=== PATIENT | male | born 1975 | race Two or more races ===

== ENCOUNTER 2021-01-26 08:27 | Outpatient (REF) | payer MEDICAID, SELFPAY ==
[2021-01-26 09:05] LABS: MANUAL DIFF FLAG NO
[2021-01-26 09:12] LABS: Basophils Percent Auto 0.4 % (0-2); Eosinophils Absolute Auto 0.2 X10*3/uL (0.0-0.4); Eosinophils Percent Auto 1.9 % (0-4); Hematocrit 46.2 % (42-52); Hemoglobin 15.7 g/dl (14.0-18.0); Imm Gran Abs Auto 0.08 X10*3/uL (0.00-0.03); Imm Gran Pct Auto 0.7 % (0.0-0.4); Lymphocytes Absolute Auto 1.7 X10*3/uL (1.2-4.9); Lymphocytes Percent Auto 15.6 % (20-40); Mean Corpuscular Hemoglobin 30.8 pg (27.0-33.0); Mean Corpuscular Volume 90.6 fL (80-98); Mean Platelet Volume 8.5 fL (9.4-12.4); Monocytes Absolute Auto 0.9 X10*3/uL (0.1-1.2); Monocytes Percent Auto 8.3 % (2-11); Neutrophils Absolute Auto 7.9 X10*3/uL (2.0-8.3); Neutrophils Percent Auto 73.1 % (45-73); Platelet Count 402 X10*3/uL (160-400); White Blood Count 10.8 X10*3/uL (4.8-10.8)
[2021-01-26 09:59] LABS: Alanine Aminotransferase 22 U/L (0-40); Albumin Level 4.2 g/dL (3.5-5.0); Alkaline Phosphatase 106 U/L (39-117); Anion Gap 11 (12-20); Aspartate Amino Transferase 14 U/L (5-37); Bilirubin Total 0.9 mg/dL (0.0-1.0); Calcium 9.2 mg/dL (8.4-10.2); Carbon Dioxide 28 mmol/L (22-29); Chloride 103 mmol/L (96-108); Cholesterol 159 mg/dL; Estimated Glomerular Filt Rate > 60; Glucose Random 99 mg/dL (60-115); HDL Cholesterol 37 mg/dL; LDL Cholesterol Calculated 105 mg/dl; Potassium 4.3 mmol/L (3.3-5.1); Sodium 138 mmol/L (135-145); Total Protein 7.1 g/dL (6.5-8.0); Triglycerides 87 mg/dL
[2021-01-26 10:05] LABS: Thyroid Stimulating Hormone 0.52 uIU/mL (0.32-4.0)
[2021-01-26 10:25] LABS: Blood Urea Nitrogen 12 mg/dL (9-16)
[2021-01-27 08:58] LABS: ~HepC Num1 9.81 S/CO (0.00-0.79); ~Hepatitis C Antibody Reactive (Nonreactive)
[2021-01-29 13:22] LABS: HCV Log PCR <1.18 NOT DETECTED Log IU/mL (NOT DETECTED); HepC Viral Load <15 NOT DETECTED IU/mL (NOT DETECTED)
== END 2021-01-26 08:28 | disposition home or self-care (01) ==
LOC: HO.LAB 08:27
PROVIDERS: PCP Internal Medicine; Visit Provider Internal Medicine
DX: Z00.00 Encounter for general adult medical examination without abnormal findings (principal); B18.2 Chronic viral hepatitis C; E78.00 Pure hypercholesterolemia, unspecified; I87.2 Venous insufficiency (chronic) (peripheral); Z72.0 Tobacco use
CPT/HCPCS: 36415; 80053; 80061; 84443; 85025; 86803; 87522

== ENCOUNTER → 2021-03-02 09:58 | Outpatient (BNVA) | payer MEDICAID, SELFPAY | PROVIDERS: PCP Internal Medicine; Referring Provider Internal Medicine; Visit Provider Surgery Vascular Surgery | DX: I83.11 Varicose veins of right lower extremity with inflammation (principal); G57.90 Unspecified mononeuropathy of unspecified lower limb | CPT/HCPCS: 99202 ==

== ENCOUNTER 2021-03-20 10:27 | Outpatient (REF) | payer MEDICAID, SELFPAY ==
--- NOTE | ~2021-03-20 | US_ITS ---
EXAMINATION: US VENOUS BILATERAL LOWER EXTREMITIES (REFLUX EXAM) CLINICAL INDICATION: Leg pain and varicose veins. COMPARISON: None TECHNIQUE: Color flow triplex imaging and compression Doppler was performed to evaluate both the deep and the superficial systems bilaterally. To evaluate the superficial system, the examination was performed in the upright position. Color-flow Doppler ultrasound and compression ultrasound were utilized. In addition, maneuvers were utilized to demonstrate reflux. FINDINGS: 1. DEEP VENOUS ULTRASOUND OF THE RIGHT LOWER EXTREMITY: Respiratory variation, normal compression and augmented flow are noted in the right common femoral vein as well as the right popliteal vein and there is no evidence of deep venous thrombosis at these locations. There is no evidence of reflux in the deep system in either the common femoral vein or the popliteal vein. There is no evidence of a Pineda's cyst. There is an enlarged right groin lymph node measuring 4.8 x 1.3 x 2.3 cm. 2. SUPERFICIAL ULTRASOUND WITH DOPPLER OF RIGHT LOWER EXTREMITY: The right great saphenous vein at the saphenofemoral junction measures 10 mm, at the proximal thigh 7 mm, at the mid thigh 5 mm, above the knee 5 mm, at the knee 7 mm, [id number] 5 mm, midcalf 3 mm and at the ankle measures 3 mm. Reflux is present in the great saphenous vein from the level of the knee down to the level of the ankle with reflux times of 2.2 seconds. Duplicated Right Great Saphenous Vein: There is a lateral 4 mm saphenous vein that does not reflux. The right small saphenous vein measures 3 mm and demonstrates reflux in its midportion of 1.6 seconds. Accessory Vein of Giacomini: None Incompetent Perforators: None Varices Present: 0.3 cm sized varices are noted at the knee and in the proximal calf without reflux. 3. DEEP VENOUS ULTRASOUND OF THE LEFT LOWER EXTREMITY: Respiratory variation, normal compression and augmented flow are noted in the left common femoral vein as well as the left popliteal vein and there is no evidence of deep venous thrombosis at these locations. There is no evidence of reflux in the deep system in either the common femoral vein or the popliteal vein. There is no evidence of a Pineda's cyst. 4. SUPERFICIAL ULTRASOUND WITH DOPPLER OF LEFT LOWER EXTREMITY: Left great saphenous vein at the saphenofemoral junction measures 8 mm, at the proximal thigh 4 mm, at the mid thigh 4 mm, above the knee 4 mm, at the knee 3 mm, [id number] 3 mm, midcalf 3 mm and at the ankle measures 3 mm. Reflux is noted throughout the left great saphenous vein from just below the junction down to the ankle with reflux times of greater than 3 seconds. Duplicated Left Great Saphenous Vein: There is a 3 mm medial great saphenous vein. The left small saphenous vein measures 7 mm and shows no reflux. Accessory Vein of Giacomini: None Incompetent Perforators: None. Varices Present: Varices are noted in the distal thigh up to 0.4 cm in size which demonstrate 2.6 seconds of reflux. US/US venous duplex LE BI IMPRESSION: 1. No evidence of reflux or thrombus in the common femoral veins or popliteal veins bilaterally. 2. Reflux is present in both great saphenous veins as described above.
== END 2021-03-20 10:28 | disposition home or self-care (01) ==
LOC: HO.US 10:27
PROVIDERS: PCP Internal Medicine; Visit Provider Surgery Vascular Surgery
DX: I83.11 Varicose veins of right lower extremity with inflammation (principal)
CPT/HCPCS: 93970

== ENCOUNTER → 2021-04-06 10:51 | Outpatient (BNVA) | payer MEDICAID, SELFPAY | PROVIDERS: PCP Internal Medicine; Visit Provider Surgery Vascular Surgery | DX: I83.12 Varicose veins of left lower extremity with inflammation (principal) | CPT/HCPCS: 99212 ==

== ENCOUNTER → 2021-05-05 07:29 | Outpatient (BNVA) | payer MEDICAID, SELFPAY | PROVIDERS: PCP Internal Medicine; Visit Provider Surgery Vascular Surgery | DX: I83.12 Varicose veins of left lower extremity with inflammation (principal) | CPT/HCPCS: 36482 ==

== ENCOUNTER 2021-05-08 16:00 | Outpatient (REF) | payer MEDICAID, SELFPAY ==
--- NOTE | ~2021-05-08 | US_ITS ---
EXAMINATION: US VENOUS ULTRASOUND WITH DOPPLER LOWER EXTREMITY, LEFT CLINICAL INFORMATION: This a 45-year-old male who status post vein closure. COMPARISON: None TECHNIQUE: Ultrasound of the deep veins is performed from the hip to the calf with compression sonography and color and pulse Doppler assessment. Spectral analysis with color-flow imaging is performed. FINDINGS: There is normal venous compression and respiratory variation and augmented flow. The visualized common femoral vein, superficial femoral vein, profunda femoral vein, popliteal vein, and the trifurcation region shows no evidence of deep venous thrombosis. There is no significant popliteal fossa cyst. The great saphenous vein appears closed. The vein is closed 2.6 cm from the saphenofemoral junction. There is no extension of thrombus into the deep venous system. If the patient's symptoms persist, followup ultrasound in 5 days 7 days might be of value to exclude proximal propagation from a non-visualized calf vein. US/US venous duplex LE IMPRESSION: 1. No DVT demonstrated in the left lower extremity. 2. The left great saphenous vein is closed 2.6 cm from the junction.
== END 2021-05-08 16:01 | disposition home or self-care (01) ==
LOC: HO.US 16:00
PROVIDERS: PCP Internal Medicine; Visit Provider Surgery Vascular Surgery
DX: M79.605 Pain in left leg (principal)
CPT/HCPCS: 93971

== ENCOUNTER → 2021-05-25 12:48 | Outpatient (BNVA) | payer MEDICAID, SELFPAY | PROVIDERS: PCP Internal Medicine; Visit Provider Surgery Vascular Surgery | DX: I83.11 Varicose veins of right lower extremity with inflammation (principal) | CPT/HCPCS: 99212 ==

== ENCOUNTER 2021-06-20 14:56 | Outpatient (REF) | payer MEDICAID, SELFPAY ==
[2021-06-20 16:14] LABS: Alanine Aminotransferase 20 U/L (0-40); Albumin Level 4.4 g/dL (3.5-5.0); Alkaline Phosphatase 103 U/L (39-117); Anion Gap 15 (12-20); Aspartate Amino Transferase 18 U/L (5-37); Bilirubin Total 0.5 mg/dL (0.0-1.0); Blood Urea Nitrogen 23 mg/dL (9-16); Calcium 9.6 mg/dL (8.4-10.2); Carbon Dioxide 25 mmol/L (22-29); Chloride 105 mmol/L (96-108); Estimated Glomerular Filt Rate > 60; Glucose Random 91 mg/dL (60-115); Potassium 4.3 mmol/L (3.3-5.1); Sodium 141 mmol/L (135-145); Total Protein 7.5 g/dL (6.5-8.0)
[2021-06-20 16:30] LABS: Erythrocyte Sedimentation Rate 23 MM/HR (0-15)
[2021-06-20 16:54] LABS: Vitamin B12 414 pg/mL (200-900)
[2021-06-21 21:13] LABS: Lyme Abs Screen <0.90 index
[2021-06-25 06:45] LABS: IgA 334 mg/dL (47-310); IgG 1196 mg/dL (600-1640); IgM 124 mg/dL (50-300)
== END 2021-06-20 14:57 | disposition home or self-care (01) ==
LOC: HO.LAB 14:56
PROVIDERS: PCP Internal Medicine; Visit Provider Psychiatry & Neurology Neurology
DX: G62.9 Polyneuropathy, unspecified (principal)
CPT/HCPCS: 36415; 80053; 82607; 82746; 82784; 85652; 86334; 86617; 86618

== ENCOUNTER → 2021-06-26 09:19 | Outpatient (BNVA) | payer MEDICAID, SELFPAY | PROVIDERS: PCP Internal Medicine; Visit Provider Surgery Vascular Surgery | DX: I83.11 Varicose veins of right lower extremity with inflammation (principal) | CPT/HCPCS: 36482 ==

== ENCOUNTER 2021-06-27 16:53 | Outpatient (REF) | payer MEDICAID, SELFPAY ==
[2021-07-01 03:22] LABS: Arsenic, 24H Urine <10 mcg/L (<=80); Cadmium, 24H Urine <0.5 mcg/L (<=5.0); Lead, 24H Urine <10 mcg/L (<80); Mercury, 24H Urine <4 mcg/L (<=20)
== END 2021-06-27 16:54 | disposition home or self-care (01) ==
LOC: HO.LNP 16:53
PROVIDERS: Visit Provider Psychiatry & Neurology Neurology
DX: G62.9 Polyneuropathy, unspecified (principal)
CPT/HCPCS: 82175; 82300; 83655; 83825

== ENCOUNTER 2021-06-28 14:59 | Outpatient (REF) | payer MEDICAID, SELFPAY ==
--- NOTE | ~2021-06-28 | US_ITS ---
EXAMINATION: US VENOUS ULTRASOUND WITH DOPPLER LOWER EXTREMITY, RIGHT CLINICAL INFORMATION: Pain post greater saphenous vein VenaSeal procedure 05/29/2021 COMPARISON: Previous exams most recent 05/08/2021 TECHNIQUE: Ultrasound of the deep veins is performed from the hip to the calf with compression sonography and color and pulse Doppler assessment. Spectral analysis with color-flow imaging is performed. FINDINGS: There is normal venous compression and respiratory variation and augmented flow. The visualized common femoral vein, superficial femoral vein, profunda femoral vein, popliteal vein, and the trifurcation region shows no evidence of deep venous thrombosis. There is echogenic material seen in the right greater saphenous vein. This is 4.2 cm from the saphenofemoral junction. The right greater saphenous vein is closed. There is a right groin lymph node that measures 4.4 x 1 x 3 cm. This demonstrates normal ultrasound morphology and flow. There is no popliteal fossa cyst. US/US venous duplex LE RT IMPRESSION: No DVT demonstrated in the right lower extremity.
== END 2021-06-28 15:00 | disposition home or self-care (01) ==
LOC: HO.US 14:59
PROVIDERS: PCP Internal Medicine; Visit Provider Surgery Vascular Surgery
DX: M79.604 Pain in right leg (principal)
CPT/HCPCS: 93971

== ENCOUNTER → 2021-07-13 11:17 | Outpatient (BNVA) | payer MEDICAID, SELFPAY | PROVIDERS: PCP Internal Medicine; Visit Provider Surgery Vascular Surgery | DX: I83.11 Varicose veins of right lower extremity with inflammation (principal) | CPT/HCPCS: 99212 ==

== ENCOUNTER 2022-01-17 07:47 | Outpatient (REF) | payer MEDICAID, SELFPAY ==
[2022-01-17 08:00] LABS: MANUAL DIFF FLAG NO
[2022-01-17 08:16] LABS: Basophils Percent Auto 0.5 % (0-2); Eosinophils Absolute Auto 0.1 X10*3/uL (0.0-0.4); Eosinophils Percent Auto 1.3 % (0-4); Hematocrit 42.1 % (42.0-52.0); Hemoglobin 14.2 g/dl (14.0-18.0); Imm Gran Abs Auto 0.02 X10*3/uL (0.00-0.03); Imm Gran Pct Auto 0.3 % (0.0-0.4); Lymphocytes Absolute Auto 1.8 X10*3/uL (1.2-4.9); Lymphocytes Percent Auto 22.8 % (20-40); Mean Corpuscular HGB Conc 33.7 g/dl (31.0-36.0); Mean Corpuscular Hemoglobin 29.8 pg (27.0-33.0); Mean Corpuscular Volume 88.3 fL (80.0-98.0); Mean Platelet Volume 9.3 fL (9.4-12.4); Monocytes Absolute Auto 0.7 X10*3/uL (0.1-1.2); Monocytes Percent Auto 9.2 % (2-11); Neutrophils Absolute Auto 5.1 x10*3/uL (2.0-8.3); Neutrophils Percent Auto 65.9 % (45-73); Platelet Count 330 X10*3/uL (160-400); Red Blood Count 4.77 X10*6/uL (4.60-5.80); Red Cell Distribution Width 13.3 % (11.0-16.0); White Blood Count 7.8 X10*3/uL (4.8-10.8)
[2022-01-17 08:27] LABS: Alanine Aminotransferase 18 U/L (0-40); Albumin Level 4.1 g/dL (3.5-5.0); Alkaline Phosphatase 108 U/L (39-117); Anion Gap 13 (12-20); Aspartate Amino Transferase 16 U/L (5-37); Bilirubin Total 0.3 mg/dL (0.0-1.0); Blood Urea Nitrogen 18 mg/dL (9-16); Calcium 8.7 mg/dL (8.4-10.2); Carbon Dioxide 28 mmol/L (22-29); Chloride 105 mmol/L (96-108); Cholesterol 177 mg/dL; Estimated Glomerular Filt Rate > 60; Glucose Random 98 mg/dL (60-115); HDL Cholesterol 56 mg/dL; LDL Cholesterol Calculated 110 mg/dl; Potassium 4.3 mmol/L (3.3-5.1); Sodium 142 mmol/L (135-145); Total Protein 6.9 g/dL (6.5-8.0); Triglycerides 55 mg/dL
[2022-01-17 09:04] LABS: Folate 16.3 ng/mL (> or = 4.0); Vitamin B12 984 pg/mL (200-900)
== END 2022-01-17 07:48 | disposition home or self-care (01) ==
LOC: HO.LAB 07:47
PROVIDERS: PCP Internal Medicine; Visit Provider Internal Medicine
DX: G62.9 Polyneuropathy, unspecified (principal); I87.2 Venous insufficiency (chronic) (peripheral); Z72.0 Tobacco use
CPT/HCPCS: 36415; 80053; 80061; 82607; 82746; 85025

== ENCOUNTER 2022-10-02 16:30 | Outpatient (REF) | payer MEDICAID, SELFPAY ==
[2022-10-02 18:35] LABS: Anion Gap 11 (12-20); Blood Urea Nitrogen 26 mg/dL (9-16); Carbon Dioxide 27 mmol/L (22-29); Chloride 109 mmol/L (96-108); Estimated Glomerular Filt Rate > 60; Glucose Random 78 mg/dL (60-115); Sodium 143 mmol/L (135-145)
[2022-10-02 19:01] LABS: Erythrocyte Sedimentation Rate 11 MM/HR (0-15)
== END 2022-10-02 16:31 | disposition home or self-care (01) ==
LOC: HO.LAB 16:30
PROVIDERS: PCP Internal Medicine; Visit Provider Psychiatry & Neurology Neurology
DX: G62.9 Polyneuropathy, unspecified (principal)
CPT/HCPCS: 36415; 80048; 85652

== ENCOUNTER 2023-09-24 09:38 | Outpatient (REF) | payer MEDICAID, SELFPAY ==
[2023-09-24 11:28] LABS: Anion Gap 13 (12-20); Blood Urea Nitrogen 21 mg/dL (9-16); Calcium 9.4 mg/dL (8.4-10.2); Carbon Dioxide 27 mmol/L (22-29); Chloride 103 mmol/L (96-108); Estimated Glomerular Filt Rate > 60; Glucose Random 80 mg/dL (60-115); Potassium 3.9 mmol/L (3.3-5.1); Sodium 139 mmol/L (135-145); T4 Thyroxine 6.8 ug/dL (4.5-12.0); Thyroid Stimulating Hormone 0.26 uIU/mL (0.32-4.0)
[2023-09-24 16:51] LABS: Folate 13.6 ng/mL (> or = 4.0); Vitamin B12 1466 pg/mL (200-900)
== END 2023-09-24 09:39 | disposition home or self-care (01) ==
LOC: HO.LAB 09:38
PROVIDERS: PCP Internal Medicine; Visit Provider Psychiatry & Neurology Neurology
DX: G62.9 Polyneuropathy, unspecified (principal)
CPT/HCPCS: 36415; 80048; 82607; 82746; 84436; 84443

== ENCOUNTER 2023-10-09 11:55 | Outpatient (AMB) | payer MEDICAID, SELFPAY ==
[2023-10-09 12:00] VITALS: BP 98/69; PULSE 93; BMI 25.5
--- NOTE | 2023-10-09 12:00 | A.OFFVIS_ITS ---
Vital Signs 10/09/23 12:00 Height 5 ft 9 in Weight 172 lb 6.424 oz BMI 25.5 BP 98/69 Blood Pressure Location Rt brachial Position Sitting Pulse 93 Intake Visit Reasons: Colonoscopy Screening Intake Note: Patient in office today as a new patient for colonoscopy screening. CC: Patient reports acid reflux and heartburn, his PCP prescribed him a PPI. Accompanied by: Self / Same As Patient Allergies aspirin Adverse Reaction (Verified 10/09/23 12:13) Pruritus Medication List - Last Reconciled 10/09/23 by TA Dempsey bisacodyl (Dulcolax (bisacodyl)) 10 mg (2 x 5 mg) PO BEDTIME 2 days gabapentin 600 mg PO TID pantoprazole 40 mg PO DAILY peg 3350-electrolytes 236-22.74-6.74 -5.86 gram (Golytely) 240 mL PO Q10M 1 day sildenafil 100 mg PO DAILY PRN HPI HPI Colonoscopy Screening: Details: 47-year-old male here for a preprocedural meeting to discuss a screening colonoscopy. He is referred by Dr. Hardy PMX High cholesterol Peripheral arterial disease with venous insufficiency Hepatitis C SMOKER Peripheral neuropathy ideopathic * SURGICAL HISTORY pt denies * ALLERGIES Aspirin - rash * [place] LABS: Laboratory Tests 01/26/21 09/24/23 08:45 09:58 Estimated GFR > 60 Hepatitis C Ab (EIA) Reactive H Hep C Viral Load <15 NOT DETECTED Hep C Viral Load Log <1.18 NOT DETECTED none TODAY'S VISIT [place]# family member translates per pt request This is his first colonoscopy. He denies bowel problems but does take TUMS daily for HB and dyspepsia but his PCP just rxed pantroprazole. He denies any cardiac or respiratory problems. He has Hep C but negative viral load with natural immunity. He is naive to anesthesia and sedation. There is no known FHX of CRC or polyps. [facility] Medical History Venous (peripheral) insufficiency High cholesterol Hepatitis C Surgical History No pertinent past surgical history Social History Patient Tobacco Use Status: Former Tobacco user Cigarettes Per Day: 10 Review of Systems Const Denies fatigue, Denies fever(s), Denies night sweats, Denies poor appetite and Denies weight loss ENT Reports Normal hearing present, Denies dental pain, Denies dysphagia, Denies hearing loss, Denies mouth pain, Denies odynophagia, Denies throat swelling, Denies tongue swelling and Reports other (Dentition adequate) Card Reports no additional complaints Resp Reports no additional complaints GI Details: Denies abdominal pain, Denies melena, Denies bloating, Denies hematochezia, Denies constipation, Denies GI cramping, Denies dysphagia, Denies excessive flatus, Denies early satiety, Reports heartburn, Denies diarrhea, Denies nausea, Denies odynophagia, Denies vomiting and Denies hematemesis Skin/Breast Denies pruritus, Denies lesions, Denies rash and Denies jaundice Neuro Reports Normal hearing present and Denies Abnormal speech present Endo Denies fatigue Aller/Immun Denies throat swelling and Denies tongue swelling Physical Exam Vital Signs: Last Vital Signs Pulse 93 10/09/23 12:00 BP 98/69 10/09/23 12:00 BMI result Body Mass Index 25.5 Const General: cooperative, no acute distress, well developed and well groomed Nutritional Appearance: average body habitus and well nourished Orientation/consciousness: oriented to person, oriented to place and oriented to time Limitations: No language barrier HEENT Head: Yes normocephalic and Yes atraumatic Eyes General: appearance normal, both eyes and all related structures Pupils: Equal, round and reactive pupils present Neck Neck: Yes normal visual inspection and Yes no lymphadenopathy Thyroid: Thyroid normal Resp Effort & Inspection: normal respiratory effort and able to speak in complete sentences Auscultation: clear to auscultation bilaterally Cardio Rate: regular rate Rhythm: regular rhythm Heart sounds: Normal, physiologic split S2 sound present Peripheral pulses: radial pulses present and posterior tibial pulses present GI Inspection: No distended and No Abdominal panniculus present Palpation (GI): Soft to palpation, nontender, no guarding, not rigid and No hepatosplenomegaly present Percussion: Yes normal to percussion Auscultation: normal bowel sounds Rectal Exam - Male: Yes deferred Skin General skin exam: no rashes or lesions noted, turgor normal, skin not dry, no jaundice, No spider nevi and no striae Rashes: no rashes Nails: normal Neuro General: oriented to person, oriented to place and oriented to time Cranial nerves: Yes Equal, round and reactive pupils present and Yes Normal hearing present Speech: No Abnormal speech present Extrem General: Yes normal to inspection, No clubbing, No cyanosis and No edema Psych Appearance: grossly normal and well kempt Mental Status: mental status grossly normal Speech and movement: Normal speech and movement present Affect: normal affect Attitude: cooperative Thought process: Normal thought process present and not confabulating Thought content: Normal thought content present Insight: Good insight present (Psych) Judgement: Good judgement present (Psych) Assessment & Plan Assessment & Plan (1) Pre-op examination: Code(s): Z01.818 - Encounter for other preprocedural examination Category: Medical Plan [place]# family member translates per pt request This is his first colonoscopy. He denies bowel problems but does take TUMS daily for HB and dyspepsia but his PCP just rxed pantroprazole. He denies any cardiac or respiratory problems. He has Hep C but negative viral load with natural immunity. He is naive to anesthesia and sedation. There is no known FHX of CRC or polyps. Orders: Orders Comprehensive Met. Panel 10/09/23 Z01.818 - Encounter for other preprocedural examination Colonoscopy - GI Use Only 10/09/23 Z01.818 - Encounter for other preprocedural examination Complete Blood Count Auto Diff 10/09/23 Z01.818 - Encounter for other preprocedural examination Medications: New bisacodyl (Dulcolax (bisacodyl)) 10 mg (2 x 5 mg) PO BEDTIME 4 tabs 0RF 2 days peg 3350-electrolytes 236-22.74-6.74 -5.86 gram (Golytely) until fecal effluent is clear; do not exceed a total volume of 2,000 mL 240 mL PO Q10M 4,000 mL 0RF 1 day Z12.11 - Encounter for screening for malignant neoplasm of colon Coding Level of Care Code New Pt Level 3 (25784) Diagnoses Pre-op examination Z01.818
== END 2023-10-09 13:28 | disposition home or self-care (01) ==
PROVIDERS: PCP Internal Medicine; Visit Provider Nurse Practitioner
DX: Z01.818 Encounter for other preprocedural examination (principal)
CPT/HCPCS: 99203

== ENCOUNTER 2023-10-09 11:55 | Outpatient (REF) | payer MEDICAID, SELFPAY ==
[2023-10-09 13:49] LABS: MANUAL DIFF FLAG NO
[2023-10-09 14:00] LABS: Basophils Absolute Auto 0.1 X10*3/uL (0.0-0.2); Basophils Percent Auto 0.6 % (0-2); Eosinophils Absolute Auto 0.2 X10*3/uL (0.0-0.4); Hematocrit 42.6 % (42.0-52.0); Hemoglobin 14.3 g/dl (14.0-18.0); Imm Gran Abs Auto 0.04 X10*3/uL (0.00-0.03); Imm Gran Pct Auto 0.4 % (0.0-0.4); Lymphocytes Absolute Auto 2.6 X10*3/uL (1.2-4.9); Lymphocytes Percent Auto 24.7 % (20-40); Mean Corpuscular HGB Conc 33.6 g/dl (31.0-36.0); Mean Corpuscular Hemoglobin 29.4 pg (27.0-33.0); Mean Corpuscular Volume 87.7 fL (80.0-98.0); Mean Platelet Volume 8.4 fL (9.4-12.4); Monocytes Absolute Auto 0.9 X10*3/uL (0.1-1.2); Monocytes Percent Auto 8.9 % (2-11); Neutrophils Absolute Auto 6.6 x10*3/uL (2.0-8.3); Neutrophils Percent Auto 63.4 % (45-73); Platelet Count 396 X10*3/uL (160-400); Red Blood Count 4.86 X10*6/uL (4.60-5.80); Red Cell Distribution Width 12.8 % (11.0-16.0); White Blood Count 10.3 X10*3/uL (4.8-10.8)
[2023-10-09 14:21] LABS: Alanine Aminotransferase 13 U/L (0-40); Albumin Level 4.3 g/dL (3.5-5.0); Alkaline Phosphatase 97 U/L (39-117); Anion Gap 13 (12-20); Aspartate Amino Transferase 15 U/L (5-37); Bilirubin Total 0.5 mg/dL (0.0-1.0); Blood Urea Nitrogen 20 mg/dL (9-16); Calcium 9.2 mg/dL (8.4-10.2); Carbon Dioxide 27 mmol/L (22-29); Chloride 104 mmol/L (96-108); Estimated Glomerular Filt Rate > 60; Glucose Random 77 mg/dL (60-115); Potassium 3.9 mmol/L (3.3-5.1); Sodium 140 mmol/L (135-145); Total Protein 7.3 g/dL (6.5-8.0)
== END 2023-10-09 11:56 | disposition home or self-care (01) ==
LOC: HO.LAB 11:55
PROVIDERS: PCP Internal Medicine; Visit Provider Nurse Practitioner
DX: Z01.818 Encounter for other preprocedural examination (principal); K21.9 Gastro-esophageal reflux disease without esophagitis; R12 Heartburn
CPT/HCPCS: 36415; 80053; 85025; 99212

== ENCOUNTER 2023-11-01 18:36 | Outpatient (REF) | payer MEDICAID, SELFPAY ==
--- NOTE | ~2023-11-01 | MR_ITS ---
EXAMINATION: MR BRAIN WITHOUT CONTRAST CLINICAL INFORMATION: Headache COMPARISON: None TECHNIQUE: Multiplanar multisequence MR imaging of the brain was obtained without intravenous contrast. FINDINGS: Motion degraded examination There is no acute infarct on diffusion-weighted imaging. There is no intracranial hemorrhage on iron-sensitive imaging. No extra-axial collection or mass effect/herniation. There are several scattered punctate foci of T2/FLAIR hyperintense signal in the supratentorial and predominantly frontal white matter. Otherwise normal parenchymal signal characteristics. No hydrocephalus. The ventricles are normal in morphology and size. The major flow voids at the skull base are preserved. The midline structures are normal. The cerebellar tonsils are normally positioned. The craniocervical junction is normal. Marrow signal is within normal limits. The visualized soft tissues are without significant abnormality. No signal abnormality within the paranasal sinuses or within the mastoid air cells. MR/MR head/brain wo con IMPRESSION: Motion degraded examination 1. Several scattered punctate foci of T2/FLAIR hyperintense signal in the supratentorial and frontal white matter are nonspecific but can be seen in the setting of migraine headache. No specific lesion morphology or distribution to suggest demyelinating disease. 2. Otherwise unremarkable noncontrast MRI of the brain.
== END 2023-11-01 18:37 | disposition home or self-care (01) ==
LOC: HO.MRI 18:36
PROVIDERS: PCP Internal Medicine; Visit Provider Psychiatry & Neurology Neurology
DX: G31.84 Mild cognitive impairment of uncertain or unknown etiology (principal)
CPT/HCPCS: 70551

== ENCOUNTER 2023-11-18 10:25 | Outpatient (REF) | payer MEDICAID, SELFPAY ==
[2023-11-18 10:56] LABS: MANUAL DIFF FLAG NO
[2023-11-18 12:39] LABS: Basophils Absolute Auto 0.1 X10*3/uL (0.0-0.2); Eosinophils Absolute Auto 0.3 X10*3/uL (0.0-0.4); Eosinophils Percent Auto 3.5 % (0-4); Hematocrit 42.6 % (42.0-52.0); Hemoglobin 14.2 g/dl (14.0-18.0); Imm Gran Abs Auto 0.03 X10*3/uL (0.00-0.03); Imm Gran Pct Auto 0.4 % (0.0-0.4); Lymphocytes Absolute Auto 2.2 X10*3/uL (1.2-4.9); Lymphocytes Percent Auto 28.7 % (20-40); Mean Corpuscular HGB Conc 33.3 g/dl (31.0-36.0); Mean Corpuscular Hemoglobin 29.6 pg (27.0-33.0); Mean Corpuscular Volume 88.9 fL (80.0-98.0); Mean Platelet Volume 9.5 fL (9.4-12.4); Monocytes Absolute Auto 0.7 X10*3/uL (0.1-1.2); Monocytes Percent Auto 9.2 % (2-11); Neutrophils Absolute Auto 4.4 x10*3/uL (2.0-8.3); Neutrophils Percent Auto 57.2 % (45-73); Platelet Count 335 X10*3/uL (160-400); Red Blood Count 4.79 X10*6/uL (4.60-5.80); Red Cell Distribution Width 13.3 % (11.0-16.0); White Blood Count 7.7 X10*3/uL (4.8-10.8)
[2023-11-18 13:37] LABS: Alanine Aminotransferase 17 U/L (0-40); Albumin Level 4.2 g/dL (3.5-5.0); Alkaline Phosphatase 99 U/L (39-117); Anion Gap 14 (12-20); Aspartate Amino Transferase 17 U/L (5-37); Bilirubin Total 0.6 mg/dL (0.0-1.0); Blood Urea Nitrogen 13 mg/dL (9-16); Calcium 9.6 mg/dL (8.4-10.2); Carbon Dioxide 31 mmol/L (22-29); Chloride 101 mmol/L (96-108); Estimated Glomerular Filt Rate > 60; Glucose Random 72 mg/dL (60-115); Potassium 4.1 mmol/L (3.3-5.1); Sodium 142 mmol/L (135-145)
[2023-11-18 13:56] LABS: Thyroid Stimulating Hormone 0.34 uIU/mL (0.32-4.0)
[2023-11-18 14:04] LABS: Folate 10.7 ng/mL (> or = 4.0); Vitamin B12 1994 pg/mL (200-900)
== END 2023-11-18 10:26 | disposition home or self-care (01) ==
LOC: HO.LAB 10:25
PROVIDERS: PCP Internal Medicine; Visit Provider Internal Medicine
DX: Z00.00 Encounter for general adult medical examination without abnormal findings (principal); F17.201 Nicotine dependence, unspecified, in remission; F32.9 Major depressive disorder, single episode, unspecified; G44.209 Tension-type headache, unspecified, not intractable; K21.9 Gastro-esophageal reflux disease without esophagitis; N52.1 Erectile dysfunction due to diseases classified elsewhere; R63.4 Abnormal weight loss
CPT/HCPCS: 36415; 80053; 82607; 82746; 84443; 85025

== ENCOUNTER 2024-03-11 09:19 | Day surgery (SDC) | payer MEDICAID, SELFPAY ==
[2024-03-06 14:35] VITALS: BMI 25.4
--- NOTE | 2024-03-10 09:09 | P.CONAN_ITS ---
Documented by User: Lena Ma NP 03/10/24 09:09 HPI - Anesthesia Eval Consult details Narrative: 48yo M for Colonoscopy [facility] Active Problems Active Problems: All Active Problems Pre-op examination (Acute) Varicose veins of left lower extremity with inflammation (Acute) Neuropathy of lower extremity (Acute) Varicose veins of right lower extremity with inflammation (Acute) Past Medical History Medical History Venous (peripheral) insufficiency High cholesterol Hepatitis C Surgical History Surgical History No pertinent past surgical history Social History Social History Patient Tobacco Use Status: Former Tobacco user Cigarettes Per Day: 10 Substance Use Frequency: Occasionally Have you been hit, kicked, punched, or otherwise hurt by someone within the past year? If so, by whom?: No Are you DNR?: No Advance Directives: No Advance Directives Information Provided: Yes Recently lost weight without trying: No Nutrition Risks: No Nutritional Risk Meds Allergies Allergy/AdvReac Type Severity Reaction Status Date / Time aspirin AdvReac Pruritus Verified 10/09/23 12:13 Home Medications ?Medication ?Instructions ?Recorded ?Confirmed ?Last Taken ?Type sildenafil 100 mg tablet 100 mg PO DAILY PRN 03/02/21 10/09/23 Unknown History gabapentin 600 mg tablet 600 mg PO TID 06/26/21 10/09/23 Unknown History pantoprazole 40 mg tablet,delayed 40 mg PO DAILY 10/09/23 10/09/23 Unknown History release Exam Height,Weight and Vital Signs: Height 5 ft 9 in Weight 78.018 kg Assessment and Plan Assessment Anesthesia Assessment: Chart Reviewed Documented by User: Charlotte Kong MD 03/11/24 10:39 PMF Past Medical History Medical History Venous (peripheral) insufficiency High cholesterol Hepatitis C Family History Family history of problems with anesthesia: No Surgical History Surgical History No pertinent past surgical history History of Problems with Anesthesia: No Social History Social History Patient Tobacco Use Status: Former Tobacco user Cigarettes Per Day: 10 Substance Use Frequency: Occasionally Have you been hit, kicked, punched, or otherwise hurt by someone within the past year? If so, by whom?: No Are you DNR?: No Advance Directives: No Advance Directives Information Provided: Yes Recently lost weight without trying: No Nutrition Risks: No Nutritional Risk Meds Allergies Allergy/AdvReac Type Severity Reaction Status Date / Time aspirin AdvReac Pruritus Verified 10/09/23 12:13 Home Medications ?Medication ?Instructions ?Recorded ?Confirmed ?Last Taken ?Type sildenafil 100 mg tablet 100 mg PO DAILY PRN 03/02/21 10/09/23 Unknown History gabapentin 600 mg tablet 600 mg PO TID 06/26/21 10/09/23 Unknown History pantoprazole 40 mg tablet,delayed 40 mg PO DAILY 10/09/23 10/09/23 Unknown History release Exam Airway Mallampati Class: II TM Dist: >3cm Neck ROM: Full Heart: RRR Lungs: CTA Assessment and Plan Assessment Anesthesia Assessment: Anesthesia Plan Discussed Final Anesthetic Review Family History of Problems with Anesthesia: No History of Problems with Anesthesia: No NPO: Yes ASA Class: II Final Preanesthetic Review: No Changes in Pt Med Stat, Meds/Allgs Chart Reviewed, Consent Obtained/Reviewed and Anes Risks/Benef Reviewed Patient Risk: Low Procedure Risk: Low Anesthetic Plan Anesthetic Plan: MAC: Disposition: Standard PACU
[2024-03-11 10:29] VITALS: BP 107/73; PULSE 62; RESP 18; TEMP 37.2; O2SAT 98
--- NOTE | 2024-03-11 11:24 | MHC.SHP ---
Pre-Procedural Eval Section A - 24 Hr Update-Section A only Date of Service: 03/11/24 Section B - Complete if H&P > 30 days Chief Complaint: screening Relevant Family History (Specify if Yes): No Relevant Social History: Tobacco Use Present Medications: see Short Stay Collaborative assessment Medical History: Significant History (varicose veins) History of Previous Operations: No relevant previous surgery Allergies: Allergies Allergy/AdvReac Type Severity Reaction Status Date / Time aspirin AdvReac Pruritus Verified 10/09/23 12:13 Review of Systems Sugical H&P ROS: Negative: Constitution, Cardiovascular, Respiratory, Neurological, Psychiatric, Hem-Onc, Allergic/Immunologic, Gastrointestinal, Genitourinary, Musculoskeletal, Integumentary, Endocrine and Eyes/Ears/Nose/Throat Exam Surgical H&P Exam: Normal: HEENT, Normal: Heart, Normal: Lungs, Normal: Extremities, Normal: Abdomen, Normal: Skin and Normal: Neurological Plan Diagnosis/Plan: Unchanged I have reviewed the history and physical and performed a pertinent physical examination on my patient. No changes have occurred unless specified. Time Spent With Patient Time: Total time managing care of this patient today ____ minutes.
--- NOTE | 2024-03-11 11:54 | HO.OPN-COLON ---
Colonoscopy Operative Note Operative Note Date of Service: 03/11/24 Narrative: Operative Information Procedure Description: Colonoscopy Indication: screening Anesthesia: MAC COLONOSCOPY Instrument: Olympus variable stiffness pediatric scope 190L Colonoscopy Monitoring: Vital signs and clinical assessment, continuous EKG monitoring, Pulse oximetry, Carbon Dioxide monitoring and blood pressure monitoring were done throughout the procedure. Colon withdrawal time was 9 minutes. Procedure: The patient was placed in the left lateral decubitis position and pre-procedure medications were administered. After a digital rectal examination of the ano-rectum, the video colonoscope was inserted into the rectum and advanced through the colon to the cecum/TI. The colonoscope was slowly withdrawn in a retrograde panoramic fashion and the colon mucosa was carefully examined including a retroflexed view of the rectum. Findings and interventions are described below. Procedure Difficulty: easy Findings: Terminal Ileum-normal Cecum: 4-6 mm sessile polyp removed with cold forceps Ascending Colon: normal Transverse Colon -normal Descending Colon: x 2 sessile polyps 8-10 mm removed with cold snare Sigmoid Colon: normal Rectum: Retroflexion with small internal hemorrhoids seen, grade I Anorectum - normal Intervention: cold snare Colon preparation: [place] Bowel Preparation Scale Right colon; 2 Transverse colon: 3 Left colon; 3 (0 = Unprepared colon segment with mucosa not seen due to solid stool that cannot be cleared. 1 = Portion of mucosa of the colon segment seen, but other areas of the colon segment not well seen due to staining, residual stool and/or opaque liquid. 2 = Minor amount of residual staining, small fragments of stool and/or opaque liquid, but mucosa of colon segment seen well. 3 = Entire mucosa of colon segment seen well with no residual staining, small fragments of stool or opaque liquid) Impression and Post Procedure Diagnosis: colon polyps internal hemorrhoids Plan: High fiber diet leaflet Avoid straining at stool, epsom salts and sitz bath, anusol supps or cream Repeat Colonoscopy in 3-4 years due to adenomatous appearing polyps or earlier if clinically indicated Above findings were reviewed with the patient and relevant handouts were provided if indicated.
[2024-03-11 11:59] VITALS: BP 95/55; PULSE 67; RESP 16; TEMP 36.1; O2SAT 98
[2024-03-11 12:15] VITALS: BP 93/54; PULSE 75; RESP 16; O2SAT 100
[2024-03-11 12:30] VITALS: BP 105/83; PULSE 61; RESP 16; TEMP 36.2; O2SAT 99
== END 2024-03-11 13:06 | disposition home or self-care (01) ==
PROVIDERS: PCP Internal Medicine; Visit Provider Internal Medicine Gastroenterology
PROC: 0DJD8ZZ Inspection of Lower Intestinal Tract, Via Natural or Artificial Opening Endoscopic (ICD-10-PCS; CPT 45378; principal; 2024-03-11 11:50)
DX: Z12.11 Encounter for screening for malignant neoplasm of colon (principal); D12.0 Benign neoplasm of cecum; D12.4 Benign neoplasm of descending colon; K64.0 First degree hemorrhoids; B19.20 Unspecified viral hepatitis C without hepatic coma; E78.00 Pure hypercholesterolemia, unspecified; I87.2 Venous insufficiency (chronic) (peripheral); Z79.899 Other long term (current) drug therapy; Z88.6 Allergy status to analgesic agent; Z87.891 Personal history of nicotine dependence
CPT/HCPCS: 45385; 45380; 88305; J2003; J2704

== ENCOUNTER → 2024-03-11 09:19 | Outpatient (BNV) | payer MEDICAID, SELFPAY | PROVIDERS: PCP Internal Medicine; Visit Provider Internal Medicine Gastroenterology | DX: Z12.11 Encounter for screening for malignant neoplasm of colon (principal); D12.4 Benign neoplasm of descending colon; D12.0 Benign neoplasm of cecum; K64.0 First degree hemorrhoids | CPT/HCPCS: 45380; 45385 ==

== ENCOUNTER 2024-03-25 10:52 | Outpatient (AMB) | payer MEDICAID, SELFPAY ==
[2024-03-25 10:55] VITALS: BP 96/64; PULSE 63; BMI 24.9
--- NOTE | 2024-03-25 10:55 | A.OFFVIS_ITS ---
Vital Signs 03/25/24 10:55 Height 5 ft 9 in Weight 168 lb 13.985 oz BMI 24.9 BP 96/64 Blood Pressure Location Lt brachial Position Sitting Pulse 63 Intake Visit Reasons: s/p colon Intake Note: Patient in office today s/p colonoscopy. CC: Patient reports doing well and denies having any GI concerns today. Per patient's girlfriend he is taking the Omeprazole because he never received the Pantoprazole. Air Breaker Operator Required: Yes Air Breaker Operator Name: significan other Accompanied by: Significant Other Allergies aspirin Adverse Reaction (Verified 03/25/24 10:59) Pruritus HPI HPI s/p colon: Details: Assessment & Plan (1) Pre-op examination: Code(s): Z01.818 - Encounter for other preprocedural examination Category: Medical Plan [place]# family member translates per pt request This is his first colonoscopy. He denies bowel problems but does take TUMS daily for HB and dyspepsia but his PCP just rxed pantroprazole. He denies any cardiac or respiratory problems. He has Hep C but negative viral load with natural immunity. He is naive to anesthesia and sedation. There is no known FHX of CRC or polyps. Orders: Orders Comprehensive Met. Panel 10/09/23 Z01.818 - Encounter for other preprocedural examination Colonoscopy - GI Use Only 10/09/23 Z01.818 - Encounter for other preprocedural examination Complete Blood Count Auto Diff 10/09/23 Z01.818 - Encounter for other prepro cedural examination Medications: New bisacodyl (Dulcolax (bisacodyl)) 10 mg (2 x 5 mg) PO BEDTIME 4 tabs 0RF 2 days peg 3350-electrolytes 236-22.74-6.74 -5.86 gram (Golytely) until fecal effluent is clear; do not exceed a total volume of 2,000 mL 240 mL PO Q10M 4,000 mL 0RF 1 day Z12.11 - Encounter for screening for malignant neoplasm of colon Labs: Laboratory Tests 11/18/23 10:55 WBC 7.7 Hgb 14.2 Hct 42.6 Plt Count 335 Estimated GFR > 60 Total Bilirubin 0.6 AST 17 ALT 17 Alkaline Phosphatase 99 TSH 0.34 COLONOSCOPY 03/11/24 Findings: Terminal Ileum-normal Cecum: 4-6 mm sessile polyp removed with cold forceps Ascending Colon: normal Transverse Colon -normal Descending Colon: x 2 sessile polyps 8-10 mm removed with cold snare Sigmoid Colon: normal Rectum: Retroflexion with small internal hemorrhoids seen, grade I Anorectum - normal Intervention: cold snare Impression and Post Procedure Diagnosis: colon polyps internal hemorrhoids Plan: High fiber diet leaflet Avoid straining at stool, epsom salts and sitz bath, anusol supps or cream Repeat Colonoscopy in 3-4 years due to adenomatous appearing polyps or earlier if clinically indicated BIOPSY Received: 03/11/24 Diagnosis A. Colon, descending, polyps: Tubular adenomas (2 pieces); negative for high- grade dysplasia and carcinoma. B. Colon, cecal polyp: Tubular adenoma; negative for high-grade dysplasia and carcinoma. TODAY'S VISIT [place] #female family member translates per pt request He is agreeable to a 3 year repeat. The procedure was well tolerated. The results were explained and the patient is agreeable to the follow-up interval as stated. The bowel pattern has returned to normal. Education was provided to tell any 1st degree relatives about their findings to be sure that they are screened by age 45. Educated that they will be put on a recall list when it is time for their repeat scope but should they move out of state or away from the hospital they will need to remember along with their primary to repeat the procedure in a timely fashion to avoid any adverse complications. [facility] Medical History Venous (peripheral) insufficiency High cholesterol Hepatitis C Surgical History No pertinent past surgical history Social History Patient Tobacco Use Status: Former Tobacco user Cigarettes Per Day: 10 Review of Systems Const Denies fatigue, Denies fever(s), Denies night sweats, Denies poor appetite and Denies weight loss ENT Reports Normal hearing present, Denies dental pain, Denies dysphagia, Denies hearing loss, Denies mouth pain, Denies odynophagia, Denies throat swelling, Denies tongue swelling and Reports other (Dentition adequate) Card Reports no additional complaints Resp Reports no additional complaints GI Details: Denies abdominal pain, Denies melena, Denies bloating, Denies hematochezia, Denies constipation, Denies GI cramping, Denies dysphagia, Denies excessive flatus, Denies early satiety, Denies heartburn, Denies diarrhea, Denies nausea, Denies odynophagia, Denies vomiting and Denies hematemesis Skin/Breast Denies pruritus, Denies lesions, Denies rash and Denies jaundice Neuro Reports Normal hearing present and Denies Abnormal speech present Endo Denies fatigue Aller/Immun Denies throat swelling and Denies tongue swelling Physical Exam Vital Signs: Last Vital Signs Pulse 63 03/25/24 10:55 BP 96/64 03/25/24 10:55 BMI result Body Mass Index 24.9 Const General: cooperative, no acute distress, well developed and well groomed Nutritional Appearance: average body habitus and well nourished Orientation/consciousness: oriented to person, oriented to place and oriented to time Limitations: language barrier and other limitations HEENT Head: Yes normocephalic and Yes atraumatic Eyes General: appearance normal, both eyes and all related structures Pupils: Equal, round and reactive pupils present Neck Neck: Yes normal visual inspection and Yes no lymphadenopathy Thyroid: Thyroid normal Resp Effort & Inspection: normal respiratory effort and able to speak in complete sentences Auscultation: clear to auscultation bilaterally Cardio Rate: regular rate Rhythm: regular rhythm Heart sounds: Normal, physiologic split S2 sound present Peripheral pulses: radial pulses present and posterior tibial pulses present GI Inspection: No distended and No Abdominal panniculus present Palpation (GI): Soft to palpation, nontender, no guarding, not rigid and No hepatosplenomegaly present Percussion: Yes normal to percussion Auscultation: normal bowel sounds Rectal Exam - Male: Yes deferred Skin General skin exam: no rashes or lesions noted, turgor normal, skin not dry, no jaundice, No spider nevi and no striae Rashes: no rashes Nails: normal Neuro General: oriented to person, oriented to place and oriented to time Cranial nerves: Yes Equal, round and reactive pupils present and Yes Normal hearing present Speech: No Abnormal speech present Extrem General: Yes normal to inspection, No clubbing, No cyanosis and No edema Psych Appearance: grossly normal and well kempt Mental Status: mental status grossly normal Speech and movement: Normal speech and movement present Affect: normal affect Attitude: cooperative Thought process: Normal thought process present and not confabulating Thought content: Normal thought content present Insight: Limited insight present (Psych) Judgement: Limited judgement present (Psych) Results Reviewed Results Reviewed: Laboratory Tests 11/18/23 10:55 WBC 7.7 Hgb 14.2 Hct 42.6 Plt Count 335 Estimated GFR > 60 Total Bilirubin 0.6 AST 17 ALT 17 Alkaline Phosphatase 99 TSH 0.34 COLONOSCOPY 03/11/24 Findings: Terminal Ileum-normal Cecum: 4-6 mm sessile polyp removed with cold forceps Ascending Colon: normal Transverse Colon -normal Descending Colon: x 2 sessile polyps 8-10 mm removed with cold snare Sigmoid Colon: normal Rectum: Retroflexion with small internal hemorrhoids seen, grade I Anorectum - normal Intervention: cold snare Impression and Post Procedure Diagnosis: colon polyps internal hemorrhoids Plan: High fiber diet leaflet Avoid straining at stool, epsom salts and sitz bath, anusol supps or cream Repeat Colonoscopy in 3-4 years due to adenomatous appearing polyps or earlier if clinically indicated BIOPSY Received: 03/11/24 Diagnosis A. Colon, descending, polyps: Tubular adenomas (2 pieces); negative for high- grade dysplasia and carcinoma. B. Colon, cecal polyp: Tubular adenoma; negative for high-grade dysplasia and carcinoma. Assessment & Plan Assessment & Plan (1) Tubular adenoma of colon: Code(s): D12.6 - Benign neoplasm of colon, unspecified Category: Medical Plan [place] #female family member translates per pt request He is agreeable to a 3 year repeat. The procedure was well tolerated. The results were explained and the patient is agreeable to the follow-up interval as stated. The bowel pattern has returned to normal. Education was provided to tell any 1st degree relatives about their findings to be sure that they are screened by age 45. Educated that they will be put on a recall list when it is time for their repeat scope but should they move out of state or away from the hospital they will need to remember along with their primary to repeat the procedure in a timely fashion to avoid any adverse complications. Coding Level of Care Code Est Pt Level 3 (85612) Diagnoses Tubular adenoma of colon D12.6
== END 2024-03-25 11:27 | disposition home or self-care (01) ==
LOC: HO.HGI 10:52
PROVIDERS: PCP Internal Medicine; Visit Provider Nurse Practitioner
DX: D12.6 Benign neoplasm of colon, unspecified (principal)
CPT/HCPCS: 99213

== ENCOUNTER → 2024-03-25 10:52 | Outpatient (BNVA) | payer MEDICAID, SELFPAY | PROVIDERS: PCP Internal Medicine; Visit Provider Nurse Practitioner | DX: D12.6 Benign neoplasm of colon, unspecified (principal) | CPT/HCPCS: 99212 ==

== ENCOUNTER 2025-01-15 03:57 | Emergency (ER) | payer MEDICAID, SELFPAY ==
[2025-01-15 04:11] VITALS: BP 128/89; PULSE 86; RESP 20; TEMP 36.9; TEMP 37; O2SAT 99; BMI 28.2
[2025-01-15] MEDS: diazePAM 10 MG/2 ML CARTRIDGE 2.5 MG IVPUSH (04:35)
--- NOTE | 2025-01-15 04:43 | PC.NURSE ---
Iv placed in right AC, medicated per mar.
--- NOTE | 2025-01-15 04:55 | ED_ITS ---
HPI - Skin/Abscess/Foreign Bdy General Chief complaint: Skin/Abscess/Foreign Body Stated complaint: rash Time Seen by Provider: 01/15/25 04:09 Source: patient Mode of arrival: ambulatory Limitations: no limitations History of Present Illness ED Provider: Dr. Kelly Davalos HPI narrative: Patient comes to the emergency room complaining of very itchy and burning rash in the posterior aspect of his neck. Patient states that initially he thought that he cut himself shaving and has been applying several different medications. [id number] remedies to his neck. Patient states that it has spread and gotten much worse. Patient denies fever chills. Patient states that he went on vacation, he was prescribed a topical antibiotic without any significant relief. Patient states that he had to come home early from vacation. Patient denies fever chills. Patient denies rash anywhere else. Related Data Home Medications ?Medication ?Instructions ?Recorded ?Confirmed sildenafil 100 mg tablet 100 mg PO DAILY PRN 03/02/21 10/09/23 pantoprazole 40 mg tablet,delayed 40 mg PO DAILY 10/0810/09/23 release doxepin 25 mg capsule 25 mg PO BEDTIME 03/25/24 gabapentin 800 mg tablet 800 mg PO TID 03/25/24 omeprazole 20 mg capsule,delayed 20 mg PO DAILY release sertraline 50 mg tablet 50 mg PO DAILY 03/25/24 Previous Rx's ?Medication ?Instructions ?Recorded cephalexin 250 mg capsule 250 mg PO BID 7 days #14 cap s 01/15/25 doxycycline hyclate 100 mg tablet 100 mg PO BID 7 days #14 tabs 01/15/25 ibuprofen 600 mg tablet 600 mg PO TID PRN fever or p ain 01/15/25 #30 tabs prednisone 50 mg tablet 50 mg PO DAILY #4 tabs 01/15 white petrolatum (Petroleum Jelly 1 appl topical 6XD P RN dry skin 01/15/25 topical) #113 grams Allergies Allergy/AdvReac Type Severity Reaction Status Date / Time aspirin AdvReac Pruritus Verified 01/15/25 04:12 Review of Systems 2 Review of Systems: Constitutional : No Weight loss, No Fever, No Chills, No Night Sweats, No Fatigue, No Malaise ENT/Mouth : No Hearing loss, No Ear Pain, No Nasal Congestion, No Sinus Pain, No Hoarseness, No sore throat, No Rhinorrhea, No Swallowing Difficulty Eyes: No Eye Pain, No Swelling, No Redness, No Foreign Body, No Discharge, No Vision Changes Cardiovascular : No Chest Pain, No SOB, No Dyspnea on Exertion, No Orthopnea, No Edema, No Palpitations Respiratory : No Cough, No Sputum, No Wheezing, No Smoke Exposure, No Dyspnea Gastrointestinal : No Nausea, No Vomiting, No Diarrhea, No Constipation, No abdominal Pain, No Hematochezia, No Melena Genitourinary : no irregular bleeding, No Dysuria, No Urinary Frequency, No Hematuria, No Urinary Incontinence, No Urgency, No Flank Pain, No Urinary Flow Changes, No Hesitancy Musculoskeletal : No joint pain, No Myalgias, No Joint Swelling Skin : Patient complaining of rash in the posterior aspect of the neck, very itchy and burning Neuro : No Weakness, No Numbness, No Paresthesias, No Loss of Consciousness, No Dizziness, No Headache Psych : No Anxiety/Panic, No Depression, No SI/HI/AH/VH, No Social Issues, Heme/Lymph: No Bruising, No Bleeding,No Lymphadenopathy Endocrine : No Polyuria, No Polydipsia, No Temperature Intolerance PMFSH Past Medical History Medical History Venous (peripheral) insufficiency High cholesterol Hepatitis C Surgical History No pertinent past surgical history Social History Social History Patient Tobacco Use Status: Former Tobacco user Cigarettes Per Day: 10 Smoked in Last 30 Days: No Use of substances other than those prescribed or required for medical reasons: No Advance Directives: No Advance Directives Information Provided: Yes Do you have a plan to hurt others: No Plan Physical Exam 2 Exam: Exam: Appearance: Alert. Oriented X3. No acute distress. Eyes: Pupils equal, round and reactive to light. ENT: Pharynx normal. Neck: Normal inspection. Neck supple. No lymph nodes noted. No crepitus CVS: Normal heart rate and rhythm. Pulses normal. Normal S1 and S2 Respiratory: No respiratory distress. Breath sounds normal. No Wheezing. No rales Abdomen: Soft and nontender. No rigidity. No distention. Skin: Skin warm and dry. Around the next, patient has what seems contact dermatitis that got infected secondary to scratching. Extremities: No lower extremity edema. No Lacerations. No Rash Neuro: Oriented X 3. No motor deficit. No sensory deficit. Moving all extremities. No slurred speech. CN 2 through 12 grossly intact Psych: Cooperative, very anxious Vital Signs: Vital Signs: Last Vital Signs Temp 98.6 F 01/15/25 04:11 Pulse 86 01/15/25 04:11 Resp 20 01/15/25 04:11 BP 128/89 01/15/25 04:11 Pulse Ox 99 01/15/25 04:11 O2 Del Method Room Air 01/15/25 04:11 BMI result Body Mass Index 28.2 Course Course Course Narrative: On arrival, patient very anxious, crying, scratching, pacing. Patient was given IV Solu-Medrol, famotidine, Benadryl and Valium. Also was given p.o. cephalexin and doxycycline The distribution of the rash is with a neck. The areas that would be covered by a shirt/T-shirt are not affected I discussed the above-mentioned with the patient, patient instructed to follow- up with his primary care physician. Medications have been sent to his pharmacy. Medications Administered Discontinued Medications Generic Name Dose Route Start Last Admin Trade Name Chris PRN Reason Stop Dose Admin Diazepam 2.5 mg 01/15/25 04:21 01/15/25 04:35 Diazepam 10 Mg/2 Ml Cartridge IVPUSH 01/15/25 04:22 2.5 mg STAT STA Administration Diphenhydramine HCl 50 mg 01/15/25 04:17 01/15/25 04:35 Diphenhydramine Hcl 50 Mg/Ml Vial IVPUSH 01/15/25 04:18 50 mg ONCE ONE Administration Famotidine 20 mg 01/15/25 04:17 01/15/25 04:35 Famotidine/Pf 20 Mg/2 Ml Vial IVPUSH 01/15/25 04:18 20 mg ONCE ONE Administration Ketorolac Tromethamine 30 mg 01/15/25 04:21 01/15/25 04:35 Ketorolac Tromethamine 30 Mg/Ml Vial IVPUSH 01/15/25 04:22 30 mg ONCE ONE Administration Methylprednisolone Sodium Succinate 125 mg 01/15/25 04:17 01/15/25 04:35 Methylprednisolone Sod Succ 125 Mg/2 Ml Vial IVPUSH 01/15/25 04:18 125 mg ONCE ONE Administration Medical Decision Making Medical Decision Making [facility] Narrative: I discussed with the patient that he likely has contact dermatitis that got infected secondary to scratching Differential Diagnosis Differential Diagnoses: The differential diagnosis associated with the presentation includes (Allergic reaction versus contact dermatitis, cellulitis) Critical Care Time Critical Care Time Critical Care Time: Yes Total Critical Care Time: 35 Attestation: I have personally provided critical care time. Time includes review of lab data, radiology results, discussion with consultants, and monitoring for potential decompensation. Intervention performed as documented. Discharge Plan Discharge Clinical Impression: Contact dermatitis, Cellulitis Patient Disposition: Home, Self-Care Instructions: Contact Dermatitis (ED), Cellulitis (ED) Additional Instructions: Apply petroleum jelly to the affected area for comfort. Avoid scratching. Do not use harsh soaps. For showering, use a neutral soap Please follow-up with your primary care physician tomorrow. If you have any worsening or new symptoms, please return to the emergency room or call 911 Prescriptions: New prednisone 50 mg tablet 50 mg PO DAILY Qty: 4 0RF cephalexin 250 mg capsule 250 mg PO BID 7 Days Qty: 14 0RF ibuprofen 600 mg tablet 600 mg PO TID PRN (Reason: fever or pain) Qty: 30 0RF doxycycline hyclate 100 mg tablet 100 mg PO BID 7 Days Qty: 14 0RF white petrolatum [Petroleum Jelly] Gel 1 appl topical 6XD PRN (Reason: dry skin) Qty: 113 0RF No Action sildenafil 100 mg tablet 100 mg PO DAILY PRN pantoprazole 40 mg tablet,delayed release (DR/EC) 40 mg PO DAILY omeprazole 20 mg capsule,delayed release(DR/EC) 20 mg PO DAILY gabapentin 800 mg tablet 800 mg PO TID sertraline 50 mg tablet 50 mg PO DAILY doxepin 25 mg capsule 25 mg PO BEDTIME Print Language: Trin[place]
[2025-01-15 05:27] VITALS: BP 105/70; PULSE 89; RESP 18; TEMP 36.8; O2SAT 99
[2025-01-15 05:31] VITALS: BP 105/70; PULSE 89; RESP 18; TEMP 36.8; O2SAT 99
== END 2025-01-15 05:33 | disposition home or self-care (01) ==
PROVIDERS: Emergency Provider Emergency Medicine
DX: L25.9 Unspecified contact dermatitis, unspecified cause (principal); L03.221 Cellulitis of neck; Z79.899 Other long term (current) drug therapy; Z87.891 Personal history of nicotine dependence
CPT/HCPCS: 96374; 96375; 99284; J1200; J1308; J1885; J2919; J3360